=== PATIENT | female | born 1955 | race Two or more races ===

== ENCOUNTER 2022-10-02 13:23 | Inpatient (IN) | payer MEDICARE, MEDICAID ==
[~2022-10-02] VITALS: Ht 170.2 cm; Wt 89.4 kg
[2022-10-02] MEDS ORDERED: SODIUM CHLORIDE 0.9% 1,000 ML IV ONE ×2 (13:30)
[2022-10-02] MEDS ORDERED: LORAZEPAM 2MG/ML CPJ IM ONE (14:00)
[2022-10-02] MEDS ORDERED: ACETAMINOPHEN 325MG TABLET PO ONE (14:00)
[2022-10-02] MEDS ORDERED: VANCOMYCIN 1G PREMIX 200 ML IV NR (15:15)
[2022-10-02] MEDS ORDERED: CEFEPIME 1,000 MG in DEXTROSE 5% WATER 50 ML IV NR (15:15)
[2022-10-02 15:46] LABS: BASOPHILS % 0.7 % (0.0-2.0); EOSINOPHILS % 1.7 % (0.0-5.0); HEMATOCRIT. 42.8 % (36.0-48.0); HEMOGLOBIN. 13.5 g/dL (12.0-16.0); LYMPHOCYTES % 22.1 % (20.0-50.0); MEAN CORPUSCULAR HEMOGLOBIN 26.1 pg (28.0-32.0); MEAN CORPUSCULAR VOLUME 82.9 fL (81.0-99.0); MEAN PLATELET VOLUME 8.5 fl (7.4-10.4); MONOCYTES % 6.7 % (2.0-8.0); NEUTROPHILS % 68.8 % (40.0-76.0); PLATELET 247 x1000/uL (130-400); RED BLOOD CELL COUNT 5.17 mill/uL (4.2-5.4); RED CELL DISTRIBUTION WIDTH 17.1 % (11.6-14.6)
[2022-10-02 15:55] LABS: CHLORIDE 99 mEq/L (98-107)
[2022-10-02 15:56] LABS: PROTHROMBIN TIME 10.4 sec (9.6-11.0)
[2022-10-02 19:15] LABS: CLARITY URINE CLEAR (CLEAR); COLOR URINE YELLOW (YELLOW); KETONES URINE NEGATIVE (NEGATIVE); LEUKOCYTE ESTERASE URINE NEGATIVE (NEGATIVE); NITRITE URINE NEGATIVE (NEGATIVE); OCCULT BLOOD URINE NEGATIVE (NEGATIVE); PROTEIN URINE NEGATIVE (NEGATIVE); SPECIFIC GRAVITY URINE 1.007 (1.005-1.030); UROBILINOGEN URINE 0.2 E.U./dL (0.2-1.0)
[2022-10-03] VITALS (7 sets, daily range): BP systolic 99–156; BP diastolic 50–96
[2022-10-03] MEDS ORDERED: DIPHENHYDRAMINE 50MG/ML VIAL IV PRN
[2022-10-03] MEDS ORDERED: IPRATROPIUM/ALBUTEROL 0.5-3(2.5)MG/3ML NEB HHN PRN
[2022-10-03] MEDS ORDERED: ACETAMINOPHEN 325MG TABLET PO PRN ×2
[2022-10-03] MEDS ORDERED: HYDRALAZINE 20MG/ML VIAL IV PRN
[2022-10-03] MEDS ORDERED: MAGNESIUM/ALUMINUM HYDROXIDE/SIMETHICONE 30ML UDC PO PRN
[2022-10-03] MEDS ORDERED: CLONIDINE 0.1MG TABLET PO PRN
[2022-10-03] MEDS ORDERED: ONDANSETRON HCL 4MG/2ML INJ IV PRN
[2022-10-03] MEDS: BUDESONIDE 0.5MG/2ML NEB HHN SCH ×2 (00:05→16:05)
[2022-10-03] MEDS ORDERED: ALBUTEROL (0.083%) 2.5MG/3ML NEB HHN PRN (00:15)
[2022-10-03] MEDS ORDERED: IPRATROPIUM BROMIDE (0.02%) 0.5MG/2.5ML NEB HHN PRN (00:15)
[2022-10-03 01:21] LABS: BG BASE EXCESS 4.2 mmol/L (-2.0-2.0); BG DEOXYHEMOGLOBIN 10.3 % (0.0-5.0); BG FRACTION INSPIRED OXYGEN 36; BG HCO3 ACT 32.4 mmol/L (22.0-26.0); BG METHEMOGLOBIN 0.2 % (0.0-1.5); BG OXYGEN SATURATION 89.6 % (92.0-98.5); BG OXYHEMOGLOBIN 88.5 % (94.0-97.0); BG PH 7.309 (7.350-7.450); BG PO2 60.6 mmHg (75.0-100.0); BG SAMPLE SITE RIGHT RADIAL; BG TOTAL HEMOGLOBIN 13.3 g/dL (12.0-18.0); BG VENT MODE NASAL CANNULA
[2022-10-03] MEDS: LORAZEPAM 2MG/ML CPJ IV PRN ×2 (02:55→10:03)
[2022-10-03] MEDS ORDERED: IPRATROPIUM/ALBUTEROL 0.5-3(2.5)MG/3ML NEB HHN SCH (06:00)
[2022-10-03] MEDS: SODIUM CHLORIDE 0.9% INJ 3ML FLUSH IVF SCH ×3 (06:00→22:00)
[2022-10-03] MEDS: CLONIDINE 0.1MG TABLET PO SCH ×3 (06:00→22:00)
[2022-10-03] MEDS ORDERED: FLUO20CA39 PO (07:02)
[2022-10-03] MEDS ORDERED: RISP3TAB62 PO (07:02)
[2022-10-03] MEDS ORDERED: AMLO10TA80 PO (07:02)
[2022-10-03] MEDS ORDERED: LITH300C3 PO (07:02)
[2022-10-03] MEDS ORDERED: RISP2TAB85 PO (07:02)
[2022-10-03] MEDS ORDERED: LITHTAB PO (07:02)
[2022-10-03] MEDS ORDERED: FLUO40CA49 PO (07:02)
[2022-10-03] MEDS ORDERED: LORAZEPAM (07:02)
[2022-10-03] MEDS: ENOXAPARIN 40MG/0.4ML SYR SUBCUT SCH (08:48)
[2022-10-03] MEDS: AMLODIPINE 5MG TABLET PO SCH ×2 (08:48→21:00)
[2022-10-03] MEDS ORDERED: RISPERIDONE 1MG TABLET PO SCH (09:00)
[2022-10-03] MEDS: ALBUTEROL (0.083%) 2.5MG/3ML NEB HHN SCH ×4 (09:20→20:27)
[2022-10-03] MEDS: IPRATROPIUM BROMIDE (0.02%) 0.5MG/2.5ML NEB HHN SCH ×4 (09:20→20:27)
[2022-10-03] MEDS ORDERED: THROAT LOZENGES-BENZOCAINE/MENTH/CETYLPYRD CL LOZENGES MM PRN (15:45)
[2022-10-03] MEDS: GUAIFENESIN-DM 200MG-20MG/10ML UDC PO PRN (16:46)
[2022-10-03] MEDS: RISPERIDONE 1MG TABLET PO SCH (20:23)
[2022-10-04] VITALS (7 sets, daily range): BP systolic 100–165; BP diastolic 54–90
[2022-10-04] MEDS: GUAIFENESIN-DM 200MG-20MG/10ML UDC PO PRN ×3 (00:47→14:30)
[2022-10-04] MEDS: IPRATROPIUM BROMIDE (0.02%) 0.5MG/2.5ML NEB HHN SCH ×4 (02:08→20:32)
[2022-10-04] MEDS: ALBUTEROL (0.083%) 2.5MG/3ML NEB HHN SCH ×4 (02:08→20:31)
[2022-10-04] MEDS: LORAZEPAM 2MG/ML CPJ IV PRN (03:19)
[2022-10-04] MEDS: CLONIDINE 0.1MG TABLET PO SCH ×3 (06:00→22:55)
[2022-10-04] MEDS: SODIUM CHLORIDE 0.9% INJ 3ML FLUSH IVF SCH ×4 (06:35→22:55)
[2022-10-04] MEDS: BUDESONIDE 0.5MG/2ML NEB HHN SCH ×2 (08:06→20:31)
[2022-10-04] MEDS: ENOXAPARIN 40MG/0.4ML SYR SUBCUT SCH (09:04)
[2022-10-04] MEDS: AMLODIPINE 5MG TABLET PO SCH ×2 (09:04→20:28)
[2022-10-04] MEDS: RISPERIDONE 1MG TABLET PO SCH ×2 (09:04→22:55)
[2022-10-05] VITALS: BP 165/77
== END 2022-10-05 01:45 | DRG 70 ==
LOC: ER 13:23 → ENRESERV 15:18 → EDBEDREQTM 18:10 → EDBEDREQSVC 18:10 → EDBEDREQ 18:10 → 5EST 19:18 → EDBEDREQ 19:41 → EDBEDREQTM 19:41 → 5EST 10-03 06:09
PROVIDERS: ADMIT Internal Medicine; ATTEND Internal Medicine
DX: G93.40 Encephalopathy, unspecified (principal); J96.01 Acute respiratory failure with hypoxia; J44.1 Chronic obstructive pulmonary disease with (acute) exacerbation; F20.0 Paranoid schizophrenia; I10 Essential (primary) hypertension; F17.210 Nicotine dependence, cigarettes, uncomplicated; Z79.899 Other long term (current) drug therapy
CPT/HCPCS: 36415; 36600; 71045; 80053; 80178; 81003; 82140; 82375; 82805; 82962; 83605; 84145; 84443; 85025; 93005; 93970; 94640; 99285; J0692; J1650; J2060; J3370; J7030; J7060; J7626